=== PATIENT | female | born 1940 | race Caucasian/White ===

== ENCOUNTER 2020-05-04 17:44 | Emergency (ER) | payer MEDICARE, OTHER ==
[~2020-05-04] VITALS: Ht 165.1 cm; Wt 70.3 kg
--- NOTE | 2020-05-04 18:45 | NUR ---
ELVIRA FROM HOME TO ER BED 6. AAOX4. NOT IN RESP DISTRESS. AMBULATORY. CAME IN FOR SLIP AND FALL. PT WAS IN THE BATHROOM SLIPPED ON THE BATH MAT. DENIES PASSING OUT AND REMEMBERS EVERYTHING. PT OBTAINED LACERATION ON L FORE HEAD 4 CM LONG, L FOREARM MULTIPLE SITES 1CM LONG. WAS AT THE BEDSIDE FOR EVAL. ORDERS RECEIVED NOTED AND CARRIED OUT.
--- NOTE | 2020-05-04 18:48 | NUR ---
LACERATION TRAY SETUP
[2020-05-04] MEDS ORDERED: LIDOCAINE /MPF 1% VIAL 5 ML VIAL ONE (18:49)
[2020-05-04 19:50] VITALS: BP 128/70
--- NOTE | 2020-05-04 19:50 | NUR ---
Patient discharged to home in stable condition. Written and verbal after care instructions given. Patient verbalizes understanding of instruction. Pt ambulatory with a steady gait
== END 2020-05-04 19:50 | disposition home or self-care (01) ==
LOC: ER 17:44
DX: S01.81XA Laceration without foreign body of other part of head, initial encounter (principal); S51.812A Laceration without foreign body of left forearm, initial encounter; Z88.6 Allergy status to analgesic agent; Z88.8 Allergy status to other drugs, medicaments and biological substances; Z85.43 Personal history of malignant neoplasm of ovary; W18.2XXA Fall in (into) shower or empty bathtub, initial encounter; Y93.E1 Activity, personal bathing and showering; Y92.091 Bathroom in other non-institutional residence as the place of occurrence of the external cause; Y99.8 Other external cause status
CPT/HCPCS: 12001; 12013; 70450; 72125; 73080; 73090; 73130; 99285; A6403 ×2; J3490

== ENCOUNTER 2022-02-20 08:53 | Emergency (ER) | payer MEDICARE, OTHER ==
[~2022-02-20] VITALS: Ht 165.1 cm; Wt 71.3 kg
--- NOTE | 2022-02-20 09:10 | NUR ---
[id number] FOR C/O DIZZINESS, GEN BODY WEAKNESS AND FEELING OF PASSING OUT. THE PATIENT IS ALERT AND ORIENTED X4. IN ROOM AIR AND DENIES SOB. RESPIRATION REGULAR AND UNLABORED. ATTACHED THE PATIENT TO THE MONITOR. THE PATIENT IS PROVIDED WITH WARM BLANKET. WILL CONTINUE TO MONITOR THE PATIENT.
--- NOTE | 2022-02-20 09:15 | NUR ---
PUBLIC HEALTH EDUCATOR AT THE BEDSIDE
--- NOTE | 2022-02-20 09:24 | NUR ---
URINE COLLECTED AND SENT
[2022-02-20] MEDS ORDERED: ASPI-1169 PO (09:29)
[2022-02-20] MEDS ORDERED: ROSU10TA29 PO (09:29)
[2022-02-20] MEDS ORDERED: UBID50TA3 PO (09:29)
[2022-02-20] MEDS ORDERED: CHOL100043 PO (09:29)
[2022-02-20] MEDS ORDERED: GABA300C PO (09:29)
[2022-02-20] MEDS ORDERED: OMEG1CAP PO (09:29)
[2022-02-20] MEDS ORDERED: PANT20TA17 PO (09:29)
[2022-02-20] MEDS ORDERED: ASCO-352 PO (09:29)
[2022-02-20] MEDS ORDERED: CALC500T52 PO (09:29)
[2022-02-20] MEDS ORDERED: OLAP150T PO (09:29)
[2022-02-20] MEDS ORDERED: LORA-258 PO (09:29)
[2022-02-20] MEDS: IV NS 0.9% 1,000 ML BAG IV ONE (09:30)
--- NOTE | 2022-02-20 09:31 | NUR ---
URINE COLLECTED AND SENT TO THR LAB
[2022-02-20 09:35] LABS: BASOPHILS % (AUTO) 0.6 % (0.0-2.0); EOSINOPHILS % (AUTO) 1.3 % (0.0-6.0); HEMATOCRIT 29 % (33-45); HEMOGLOBIN 9.3 g/dL (11.5-14.8); LYMPHOCYTES # (AUTO) 0.9 K/uL (0.8-4.8); LYMPHOCYTES % (AUTO) 12.9 % (20.0-44.0); MEAN CORPUSCULAR HGB CONC 33 g/dl (31.0-36.0); MEAN CORPUSCULAR VOLUME 100 fL (82-100); MONOCYTES # (AUTO) 0.5 K/uL (0.1-1.30); MONOCYTES % (AUTO) 7.1 % (2.0-12.0); NEUTROPHILS # (AUTO) 5.7 K/uL (1.8-8.9); NEUTROPHILS % (AUTO) 78.1 % (43.0-81.0); PLATELET COUNT (AUTO) 276 K/uL (150-450); RED BLOOD CELL COUNT(AUTO) 2.88 MIL/uL (4.0-5.2); WHITE BLOOD COUNT (AUTO) 7.3 K/uL (4.3-11.0)
[2022-02-20 09:58] LABS: CALCIUM, SERUM 9.2 mg/dL (8.5-10.1); CARBON DIOXIDE 26 mmol/L (21-32); CHLORIDE 104 mmol/L (98-107); GLUCOSE 103 mg/dL (74-106); SODIUM SERUM 140 mmol/L (136-145); UREA NITROGEN, BLOOD 16 mg/dL (7-18)
[2022-02-20 10:05] LABS: ALANINE AMINOTRANSFERASE 24 U/L (12-78); ALBUMIN 3.4 g/dL (3.4-5.0); ALKALINE PHOSPHATASE 61 U/L (46-116); ASPARTATE AMINOTRANSFERASE 17 U/L (15-37); BILIRUBIN,DIRECT 0.1 mg/dL (0.0-0.2); BILIRUBIN,TOTAL 0.3 mg/dL (0.2-1.0)
[2022-02-20 10:14] LABS: BILIRUBIN,URINE NEGATIVE (NEGATIVE); COLOR,URINE YELLOW (YELLOW); LEUKOCYTE ESTERASE ,URINE SMALL (NEGATIVE); NITRITE, URINE NEGATIVE (NEGATIVE); PH,URINE 7.5 (5.0-8.0); PROTEIN,URINE NEGATIVE (NEGATIVE); UGLUCOSE NEGATIVE (NEGATIVE); UROBILINOGEN,URINE 0.2 EU/dL (0.2)
[2022-02-20 10:19] LABS: RBC,URINE 0-2 /HPF (0-2)
[2022-02-20 10:20] LABS: BACTERIA,URINE Rare /HPF (None Seen); SQUAMOUS EPITHELIAL CELL,UR 0-2 /HPF (None Seen); WBC,URINE NONE SEEN /HPF (0-3)
[2022-02-20 11:17] VITALS: BP 128/62
--- NOTE | 2022-02-20 11:29 | NUR ---
Patient discharged to home in stable condition. Written and verbal after care instructions given. Patient verbalizes understanding of instruction. Iv line removed. No bleeding noted. Picked up by friend/family via private car.
== END 2022-02-20 11:29 | disposition home or self-care (01) ==
LOC: ER 08:56
DX: F41.9 Anxiety disorder, unspecified (principal); R42 Dizziness and giddiness; I10 Essential (primary) hypertension; E78.5 Hyperlipidemia, unspecified; K21.9 Gastro-esophageal reflux disease without esophagitis; Z88.8 Allergy status to other drugs, medicaments and biological substances; Z79.899 Other long term (current) drug therapy
CPT/HCPCS: 36415; 71045; 80048; 80076; 81001; 82962; 84484; 85025; 87086; 93005; 96360; 99285; J7030

== ENCOUNTER 2023-01-24 11:13 | Emergency (ER) | payer MEDICARE, OTHER ==
[~2023-01-24] VITALS: Ht 167.6 cm; Wt 70.1 kg
[~2023-01-24 11:13] MED LIST: ASCO-352 PO; ASPI-1169 PO; CALC500T52 PO; CHOL100043 PO; GABA300C PO; LORA-258 PO; OLAP150T PO; OMEG1CAP PO; PANT20TA17 PO; ROSU10TA29 PO; UBID50TA3 PO
--- NOTE | 2023-01-24 11:15 | NUR ---
RECEIVED PT 82 YRS CAROLINE CAME FROM HOME C/O FROM HOME C/O LOWER BACK PAIN FOR 3 WEEKS GOTING WORSE LAST 2 DAY
--- NOTE | 2023-01-24 11:50 | NUR ---
SEEN BY DR. CARTWRIGHT ORDER WAS GIVEN
[2023-01-24] MEDS ORDERED: CYCLOBENZAPRINE 10 MG TABLET ONE (11:57)
[2023-01-24] MEDS ORDERED: KETOROLAC TROMETHAMINE INJ 30 MG/ML VIAL ONE ×2 (11:57)
[2023-01-24] MEDS ORDERED: CYCLOBENZAPRINE 10 MG TABLET PO ONE (12:00)
[2023-01-24] MEDS ORDERED: KETOROLAC TROMETHAMINE INJ 60 MG/2 ML VIAL IM ONE (12:00)
--- NOTE | 2023-01-24 12:30 | NUR ---
X RAY WAS DONE ON LOWER BACK
--- NOTE | 2023-01-24 13:25 | NUR ---
TORADOL 30MG IM WAS GINEN IN LT ARM AND FLEXERIL 10 MG PO GIVEN PAIN
--- NOTE | 2023-01-24 14:00 | NUR ---
BACK PAIN CAME AND PALLAVI PT HAD PAIN MANIGE PHYSICTION TO FALLOW UP WITH
--- NOTE | 2023-01-24 14:32 | NUR ---
Patient discharged to home in stable condition. Written and verbal after care instructions given. Patient verbalizes understanding of instruction.
[2023-01-24 14:46] VITALS: BP 102/66
== END 2023-01-24 14:49 | disposition home or self-care (01) ==
LOC: ER 11:15
DX: M54.6 Pain in thoracic spine (principal); Z88.8 Allergy status to other drugs, medicaments and biological substances; Z79.899 Other long term (current) drug therapy; Z85.43 Personal history of malignant neoplasm of ovary
CPT/HCPCS: 99285; 71045; 96372; J1885